=== PATIENT | male | born 1975 | race Caucasian/White ===

== ENCOUNTER 2016-08-24 04:12 | Emergency (ER) | payer OTHER ==
[~2016-08-24] VITALS: Ht 180.3 cm; Wt 61.4 kg
[2016-08-24 04:50] VITALS: BP 118/90; PULSE 83; RESP 19; TEMP 98.4; O2SAT 97
[2016-08-24] MEDS ORDERED: SODIUM CHLORIDE 0.9% FLUSH 10 ML FLUSH IVF PRN ×2 (05:15→05:45)
[2016-08-24] MEDS ORDERED: TETANUS/DIPHTHERIA TOXOID ADULT 0.5 ML VIAL IM ONE (05:15)
[2016-08-24] MEDS ORDERED: ceFAZolin INJ 1,000 MG VIAL IM ONE (05:15)
[2016-08-24] MEDS ORDERED: LIDOCAINE 1%/EPINEPHrine 1:100,000 SOLN 20 ML VIAL INFIL ONE (05:15)
[2016-08-24] MEDS ORDERED: HYDROmorphone HCL PF 1 MG/ML VIAL IVS ONE (05:45)
[2016-08-24] MEDS ORDERED: SODIUM CHLOR 0.9% 1000 ML INJ 1,000 ML IV ONE (05:45)
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
[2016-08-24 06:38] LABS: AUTOMATED NEUTROPHIL # 14.8 TH/MM3 (1.8-7.7); BASOPHIL % 0.2 % (0.0-2.0); EOSINOPHIL # 0.1 TH/MM3 (0-0.4); EOSINOPHIL % 0.8 % (0.0-4.0); HEMATOCRIT 42.5 % (39.0-51.0); HEMO FLAGS DIFF FINAL; LYMPH % 8.2 % (9.0-44.0); LYMPHOCYTE # 1.5 TH/MM3 (1.0-4.8); MEAN CELL VOLUME 100.4 FL (80.0-100.0); MEAN CORPUSCULAR HEMOGLOBIN 34.3 PG (27.0-34.0); MEAN CORPUSCULAR HGB CONC 34.2 % (32.0-36.0); MONO % 6.4 % (0.0-8.0); NEUT % 84.4 % (16.0-70.0); PLATELET COUNT 236 TH/MM3 (150-450); RED BLOOD COUNT 4.23 MIL/MM3 (4.50-5.90); RED CELL DISTRIBUTION WIDTH 14.1 % (11.6-17.2); WHITE BLOOD COUNT 17.6 TH/MM3 (4.0-11.0)
[2016-08-24 06:42] VITALS: BP 118/80; PULSE 99; RESP 18; O2SAT 94
[2016-08-24 06:47] LABS: AMPHETAMINE, URINE NEG (NEG); BARBITURATES, URINE NEG (NEG); COCAINE, URINE NEG (NEG)
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
[2016-08-24 07:07] LABS: BICARBONATE 22.2 MEQ/L (21.0-32.0); POTASSIUM 3.5 MEQ/L (3.5-5.1)
[2016-08-25] MEDS ORDERED: HYDR-3533 PO (05:13)
[2016-08-25] MEDS ORDERED: ZOFR4TAB3 SL (05:13)
[2016-08-25] MEDS ORDERED: CYCL5TAB PO (05:13)
== END 2016-08-24 07:39 | disposition home or self-care (01) ==
LOC: NEPC 04:12
DX: S01.81XA Laceration without foreign body of other part of head, initial encounter (principal); S02.2XXA Fracture of nasal bones, initial encounter for closed fracture; S02.5XXA Fracture of tooth (traumatic), initial encounter for closed fracture; F12.90 Cannabis use, unspecified, uncomplicated; Y04.2XXA Assault by strike against or bumped into by another person, initial encounter; Z72.0 Tobacco use
CPT/HCPCS: 12013; 70450; 70486; 80048; 80307; 85025; 96372; 96374; 99284; J0690; J1170; J7030

== ENCOUNTER 2016-08-25 01:27 | Emergency (ER) | payer OTHER ==
[2016-08-25 01:37] VITALS: BP 121/87; PULSE 92; RESP 18; TEMP 96.1; O2SAT 99
[2016-08-25] MEDS ORDERED: ONDANSETRON HCL 4 MG/2 ML VIAL IV ONE (02:15)
[2016-08-25] MEDS ORDERED: SODIUM CHLOR 0.9% 1000 ML INJ 1,000 ML IV ONE ×2 (02:15→03:30)
[2016-08-25 02:48] LABS: AUTOMATED NEUTROPHIL # 9.8 TH/MM3 (1.8-7.7); BASOPHIL # 0.1 TH/MM3 (0-0.2); BASOPHIL % 0.4 % (0.0-2.0); EOSINOPHIL # 0.1 TH/MM3 (0-0.4); EOSINOPHIL % 0.7 % (0.0-4.0); HEMATOCRIT 40.4 % (39.0-51.0); HEMO FLAGS DIFF FINAL; LYMPH % 16.4 % (9.0-44.0); LYMPHOCYTE # 2.2 TH/MM3 (1.0-4.8); MEAN CELL VOLUME 98.4 FL (80.0-100.0); MEAN CORPUSCULAR HEMOGLOBIN 33.9 PG (27.0-34.0); MEAN CORPUSCULAR HGB CONC 34.5 % (32.0-36.0); NEUT % 71.5 % (16.0-70.0); PLATELET COUNT 214 TH/MM3 (150-450); RED CELL DISTRIBUTION WIDTH 13.7 % (11.6-17.2); WHITE BLOOD COUNT 13.7 TH/MM3 (4.0-11.0)
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
[2016-08-25 02:58] LABS: ALT (GPT) 31 U/L (12-78); ANION GAP 15 MEQ/L (5-15); AST (GOT) 38 U/L (15-37); BICARBONATE 21.4 MEQ/L (21.0-32.0); BLOOD UREA NITROGEN 10 MG/DL (7-18); CHLORIDE 103 MEQ/L (98-107); GLOMERULAR FILTRATION RATE 107 ML/MIN (>89); MAGNESIUM 1.8 MG/DL (1.5-2.5); POTASSIUM 3.8 MEQ/L (3.5-5.1); SODIUM (NA) 139 MEQ/L (136-145)
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
[2016-08-25 03:01] LABS: ALKALINE PHOSPHATASE 84 U/L (45-117); TOTAL BILIRUBIN ADULT 1.6 MG/DL (0.2-1.0)
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
[2016-08-25] MEDS ORDERED: ceFAZolin 2 GM PREMIX 50 ML IV ONE (03:30)
[2016-08-25] MEDS ORDERED: IOHEXOL 350 MG/ML 10 ML VIAL (for RAD DIAG) IV ONE (03:36)
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
[2016-08-25] MEDS ORDERED: MORPHINE SULFATE 4 MG/ML INJ IV PUSH ONE (04:00)
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
[2016-08-25] MEDS ORDERED: CYCL5TAB PO (05:13)
[2016-08-25] MEDS ORDERED: ZOFR4TAB3 SL (05:13)
[2016-08-25] MEDS ORDERED: HYDR-3533 PO (05:13)
== END 2016-08-25 06:14 | disposition home or self-care (01) ==
LOC: NEPC 01:27
DX: S02.2XXA Fracture of nasal bones, initial encounter for closed fracture (principal); S09.8XXA Other specified injuries of head, initial encounter; S06.0X9A Concussion with loss of consciousness of unspecified duration, initial encounter; R11.10 Vomiting, unspecified; R10.9 Unspecified abdominal pain; F17.200 Nicotine dependence, unspecified, uncomplicated; Y04.2XXA Assault by strike against or bumped into by another person, initial encounter
CPT/HCPCS: 70450; 71010; 72125; 74177; 80053; 83690; 83735; 85025; 96374; 96375; 99284; J0690; J2270; J2405; J7030; Q9967